=== PATIENT | female | born 1950 | race Caucasian/White ===

== ENCOUNTER → 2023-08-15 14:17 | Outpatient (REF) | payer MEDICARE, OTHER, SELFPAY | LOC: HWRAD 14:17 | PROVIDERS: ATTENDING PHYSICIAN Internal Medicine Endocrinology, Diabetes & Metabolism; FAMILY PHYSICIAN Family Medicine | DX: E04.2 Nontoxic multinodular goiter (principal) | CPT/HCPCS: 76536 ==

== ENCOUNTER → 2024-03-04 08:17 | Outpatient (REF) | payer MEDICARE, OTHER, SELFPAY ==
[2024-03-04 10:24] LABS: HDL Cholesterol 85 mg/dl; LDL Cholesterol, Calculated 74 mg/dl; Potassium 4.4 mmol/L (3.5-5.1); Total Cholesterol 171 mg/dl (50-199); Triglyceride 60 mg/dl (10-149); Very Low Density Lipoprotein 12 mg/dl (0-30); eGFR > 60.00
[2024-03-04 11:28] LABS: Glycohemoglobin (HgbA1c) 7.8 % (4.0-5.6)
[2024-03-04 11:40] LABS: Vitamin B12 938 pg/ml (239-931)
[2024-03-04 12:37] LABS: Microalbumin, Random Urine 1.3 mg/dl (0.6-1.7); Microalbumin/creatinine Ratio 9.3 mg/g
== END ==
LOC: HWLAB 08:17
DX: E10.65 Type 1 diabetes mellitus with hyperglycemia (principal)
CPT/HCPCS: 36415; 80061; 82043; 82565; 82570; 82607; 83036; 84132